=== PATIENT | male | born 1940 | race Caucasian/White ===

== ENCOUNTER → 2017-01-13 | Outpatient (CLI) | payer MEDICARE, OTHER ==
--- NOTE | 2017-01-13 12:02 | RADRPT ---
PROCEDURE: Ultrasound of the bilateral lower extremity venous system. CLINICAL INDICATION: Bilateral leg pain and swelling, deep venous thrombosis TECHNIQUE: Islas scale with and without compression, color doppler, spectral doppler of the venous system of the bilateral lower extremities was performed. Venous augmentation maneuvers were utilized . COMPARISON: No prior studies are available for comparison. FINDINGS: RIGHT: Common femoral vein: Patent. Superficial femoral vein: Patent. Popliteal vein: Patent. Calf veins: Patent. No soft tissue abnormalities are identified. LEFT: Common femoral vein: Patent. Superficial femoral vein: Patent. Popliteal vein: Patent. Calf veins: Patent. No soft tissue abnormalities are identified. IMPRESSION: No evidence of a deep vein thrombosis within the bilateral lower extremities. RPTAT: AADD .Ariel Panchal MD, MD Date Time Electronically viewed and signed by .Ariel Panchal MD, on 01/13/2017 12:02 .B/
== END | disposition home or self-care (01) ==
LOC: VAS 10:51
PROVIDERS: ATTEND Internal Medicine
DX: M79.605 Pain in left leg (principal); M79.604 Pain in right leg; R22.43 Localized swelling, mass and lump, lower limb, bilateral
CPT/HCPCS: 93970

== ENCOUNTER 2017-04-30 16:37 | Inpatient (IN) | payer MEDICARE, OTHER ==
[~2017-04-30] VITALS: Ht 172.7 cm; Wt 88.7 kg
[2017-04-30] MEDS ORDERED: SOD CHLORIDE 0.9% 1,000 ML IV STA (18:32)
[2017-04-30 18:54] LABS: ADD SCAN DIFF NO
[2017-04-30 18:58] LABS: BASOPHIL # 0.1 10^3/ul (0.0-0.1); BASOPHILS % 0.8 % (0.0-2.0); EOSINOPHILS # 0.3 10^3/ul (0.0-0.5); EOSINOPHILS % 5.5 % (0.0-7.0); HEMATOCRIT 27.4 % (42.0-52.0); HEMOGLOBIN 9.8 g/dl (14.0-18.0); LYMPHOCYTES # 1.1 10^3/ul (0.8-2.9); LYMPHOCYTES % 17.1 % (15.0-51.0); MEAN CORPUSCULAR HEMOGLOBIN 30.9 pg (29.0-33.0); MEAN CORPUSCULAR HGB CONC 35.8 g/dl (32.0-37.0); MEAN CORPUSCULAR VOLUME 86.4 fl (82.0-101.0); MEAN PLATELET VOLUME 11.2 fl (7.4-10.4); MONOCYTE # 0.5 10^3/ul (0.3-0.9); MONOCYTES % 8.2 % (0.0-11.0); NEUTROPHIL # 4.2 10^3/ul (1.6-7.5); NEUTROPHILS % 67.7 % (39.0-77.0); PLATELET COUNT 190 10^3/UL (140-415); RED BLOOD COUNT 3.17 10^6/ul (4.70-6.10); RED CELL DISTRIBUTION WIDTH 11.8 % (11.5-14.5); WHITE BLOOD COUNT 6.1 10^3/ul (4.8-10.8)
--- NOTE | 2017-04-30 19:15 | RADRPT ---
PROCEDURE: XR Chest. CLINICAL INDICATION: Altered mental status. TECHNIQUE: Single AP portable chest COMPARISON: None. FINDINGS: The cardiomediastinal silhouette is within normal limits of size. Atherosclerotic calcification of t he aorta. The lungs are clear without pleural effusion or focal consolidation. No pneumothorax. The osseous structures and soft tissues are unremarkable. IMPRESSION: 1. No evidence for active cardiopulmonary disease. RPTAT:AAJJ Lai Ryder Physician Date Time Electronically viewed and signed by Lai Ryder Physician on 04/30/2017 19:15 LAURA/
[2017-04-30 19:32] LABS: ADD UMIC YES; URINE BILIRUBIN (Dip) NEGATIVE (NEGATIVE); URINE BLOOD (Dip) TRACE (NEGATIVE); URINE COLOR LT. YELLOW (YELLOW); URINE GLUCOSE (Dip) >=1000 % (NEGATIVE); URINE KETONES (Dip) NEGATIVE (NEGATIVE); URINE LEUKOCYTE ESTERASE (Dip) NEGATIVE (NEGATIVE); URINE NITRITE (Dip) NEGATIVE (NEGATIVE); URINE TOTAL PROTEIN (Dip) 1+ (NEGATIVE); URINE UROBILINOGEN (Dip) 0.2 E.U./dL (0.1-1.0)
--- NOTE | 2017-04-30 19:33 | RADRPT ---
PROCEDURE: CT Brain without contrast. CLINICAL INDICATION: Neurologic deficit TECHNIQUE: A CT of the brain was performed on multidetector high-resolution CT scanner utilizing a xial sections from the skull base through the vertex without contrast. One or more of the following dose reduction techniques were used: Automated exposure control, Adjustment of the mA and/or kV acc ording to patient size, and/or use of iterative reconstruction technique. DOSE: CTDI = 45 mGy and the DLP = 720 mGy-cm. COMPARISON: None available FINDINGS: No acute intracranial hemorrhage, significant mass effect or midline shift. Patchy hypoattenuation o f the cerebral white matter is compatible with chronic microvascular ischemic changes. Vascular calc ifications. Prominence of the cortical sulci and ventricles are related to mild to moderate cerebral volume loss. No significant opacification of the visualized paranasal sinuses or mastoids. IMPRESSION: No acute intracranial hemorrhage or significant mass effect. Mild chronic microvascular disease and intracranial atherosclerosis. Mild to moderate volume loss. RPTAT: AA .Aramis Nice MD, MD Date Time Electronically viewed and signed by .Aramis Nice MD, MD on 04/30/2017 19:32 .T/
[2017-04-30 19:47] LABS: URINE RBCS 0-2 /HPF (0)
[2017-04-30 19:55] LABS: ALBUMIN 4.5 g/dl (3.3-4.9); ALBUMIN/GLOBULIN RATIO 1.87; BILIRUBIN,INDIRECT 0.1 mg/dl (0-1.1); BILIRUBIN,TOTAL 0.1 mg/dl (0.2-1.3); CREATININE 2.81 mg/dl (0.61-1.24); POTASSIUM 4.7 mmol/L (3.5-5.1); TOTAL PROTEIN 6.9 g/dl (6.1-8.1)
[2017-04-30] MEDS ORDERED: INSULIN REGULAR 10 ML INJ SC ONE (20:00)
[2017-04-30 20:07] LABS: TROPONIN-I 0.021 ng/ml (0.00-0.12)
[2017-04-30 20:10] LABS: INR 1.01; PROTIME 13.3 Sec (12.2-14.2)
[2017-04-30 20:11] LABS: PARTIAL THROMBOPLASTIN TIME 28.1 Sec (25.0-35.0)
--- NOTE | 2017-04-30 20:21 | PREOPHP ---
DATE OF ADMISSION: 04/30/2017 REASON FOR ADMISSION: Hyperglycemia and uncontrolled diabetes mellitus. HISTORY OF PRESENT ILLNESS: This 76-year-old man has a history of type 2 diabetes mellitus. The patient was seen by me yesterday in my office and had a blood sugar done by the lab that 737. I spoke to the patient this morning, and I told him that his blood sugar was quite high. The patient at the time that I was speaking to him, seemed confused. He said that he had just gotten up from taking a nap. He says that he has been taking Humalog insulin 6 to 8 units before each meal; however, this is not consistent with his previous conversation with me when he told me that he took 3 units of Humalog insulin at night and that he woke up with some hypoglycemia. The patient was seen by me a month ago and his blood sugar at that time was 138. This patient has a history of chronic kidney disease and his BUN yesterday was 58 with a serum creatinine of 3.0. The patient has diabetic nephropathy. He has had significant lower extremity edema, which has been recently controlled with Lasix and metolazone. The patient has lost about 20 pounds of edema fluid over the past 2 months. The patient presents to the emergency room now. He is less confused and his blood sugar is now 565 on a fingerstick Accu-Chek. CURRENT MEDICATIONS: Includes the followin. Metolazone 2.5 mg once a day. 2. Flonase 2 sprays in each nostril once a day. Astelin 2 sprays each nostril twice a day. 3. Avodart 1 capsule twice a day. 4. Multivitamins 1 capsule daily. 5. Vitamin D3 5000 units once a week. 6. Ria 24-hour Allergy once a day. 7. Humalog insulin. 8. Flomax 0.4 mg twice a day. 9. Doxazosin 4 mg orally once a day. 10. Carvedilol 6.25 mg twice a day. 11. Furosemide 40 mg once a day after breakfast. 12. Metolazone 2.5 mg once a day before breakfast. 13. Crestor 10 mg a day. PAST MEDICAL HISTORY: Remarkable for type 2 diabetes mellitus, hyperlipidemia, hypertension, prostatism, allergic rhinitis, gastroesophageal reflux disease, chronic kidney disease, stage III to IV, diabetic nephropathy with nephrotic syndrome. ALLERGIES: 1. KEFLEX. 2. CECLOR. 3. AXID 4. NITROFURANTOIN. PAST SURGICAL HISTORY: Tonsillectomy in 1970, vasectomy 1972, hemorrhoidectomy 1975, colonoscopy and EGD 2015. FAMILY HISTORY: Father of coronary artery disease. Mother is , coronary artery disease. SOCIAL HISTORY: The patient does not smoke, drinks alcohol socially. 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 REVIEW OF SYSTEMS: CONSTITUTIONAL: No chills, no weight loss, no loss of appetite, no fever, no weakness, no fatigue. OPHTHALMOLOGIC: Negative. EARS, NOSE AND THROAT: Negative. CARDIORESPIRATORY: He denies any exertional chest pain, chest pressure, cough, ankle swelling. GASTROINTESTINAL: Negative. UROLOGIC: He does have some urinary dysfunction, but it seems pretty well controlled with his current medications. He does have a history of prostatism. PHYSICAL EXAMINATION: GENERAL: At this time reveals a well-developed man in no apparent distress. VITAL SIGNS: His weight is 193, which is down from 212 two months ago. Blood pressure 133/68, heart rate 71. HEENT: Head normocephalic. Eyes: Extraocular muscles intact. NOSE AND MOUTH: Normal. NECK: Supple. No neck vein distention. LUNGS: Clear to auscultation. HEART: Regular rhythm. No murmurs, gallops or rubs. ABDOMEN: Soft, nontender, no masses or megaly. EXTREMITIES: He has trace pretibial edema. IMPRESSION: 1. Uncontrolled diabetes mellitus with hyperglycemia. 2. Intermittent confusion. 3. Acute on chronic renal failure. History of diabetic nephropathy. 4. Hypertension. 5. Anemia of chronic kidney disease. 6. Benign prostatic hypertrophy. 7. Hyponatremia due to # 1 PLAN: 1. Admit patient to telemetry when bed available. 2. Endocrinology called , Dr Cooley will consult and order insulin 3. Resume some routine medications. 4. Monitor labs while in the hospital. 5. Diabetes education. Dictated By: POLO PRESTON MD, ND/EPHRAIM Conf#: [id number] DID#: [id number] MTDD
[2017-04-30] MEDS ORDERED: FURO40TA4 PO (20:24)
[2017-04-30] MEDS ORDERED: METO2.5T12 PO (20:25)
[2017-04-30] MEDS ORDERED: DOXA4TAB3 PO (20:26)
[2017-04-30] MEDS ORDERED: TAMS0.4C2 PO (20:27)
[2017-04-30] MEDS ORDERED: CARV6.2579 PO (20:27)
[2017-04-30] MEDS ORDERED: CRES10 PO (20:28)
[2017-04-30] MEDS ORDERED: DUTA0.5C PO (20:29)
[2017-04-30 20:55] VITALS: TEMP 98.3
[2017-04-30] MEDS ORDERED: INSULIN REGULAR, HUMAN 100 UNIT/1 ML 3ML VIAL SC ONE (21:00)
[2017-04-30] MEDS ORDERED: NACL 0.9% 3 ML SYG IV SCH (21:30)
[2017-04-30] MEDS ORDERED: ACETAMINOPHEN 325 MG TAB PO PRN ×2 (21:30→22:00)
[2017-04-30] MEDS ORDERED: MAGNESIUM HYDROXIDE 30ML CUP PO PRN (21:30)
[2017-04-30] MEDS ORDERED: SOD CHLORIDE 0.9% 1,000 ML IV SCH (21:53)
--- NOTE | 2017-04-30 21:57 | ERA ---
ER Documentation Chief Complaint Date/Time DATE: 04/30/17 TIME: 21:54 Chief Complaint ELEVATED SUGAR SENT PRIMARY, CHECKED BLOOD GLUCOSE 565 HPI Pleasant 76-year-old male with a history of diabetes who is seen by his primary care physician yesterday and had blood work drawn. The patient's blood work came back with a very elevated glucose of over 500. The patient was called and told to come to the emergency room because when he spoke with his doctor patient seemed to be confused. On arrival here the patient is very versed in what he is taking for his insulin however he does have episodes where he seems to be tangential and loses his train of thought and repeats sentences over and over again. He has times where he is completely appropriate at times or he is definitely confused. He has no physical complaints denies any dysuria fever cough abdominal pain or vomiting. He is nontoxic and well-appearing. ROS All systems reviewed and are negative except as per history of present illness. Medications Home Meds Reported Medications Dutasteride* (Avodart*) 0.5 Mg Capsule, 0.5 MG PO Q2WEEK, CAP 04/30/17 Rosuvastatin Calcium* (Crestor*) 10 Mg Tablet, 10 MG PO DAILY, #30 TAB 04/30/17 Carvedilol* (Carvedilol*) 6.25 Mg Tablet, 6.25 MG PO BID, #60 TAB 04/30/17 Tamsulosin Hcl* (Tamsulosin Hcl*) 0.4 Mg Cap.er.24h, 0.4 MG PO BID, CAP 04/30/17 Doxazosin Mesylate* (Doxazosin Mesylate*) 4 Mg Tablet, 4 MG PO DAILY, TAB 04/30/17 Metolazone* (Metolazone*) 2.5 Mg Tablet, 2.5 MG PO DAILY, TAB 04/30/17 Furosemide* (Furosemide*) 40 Mg Tablet, 40 MG PO DAILY, TAB 04/30/17 Allergies Allergies: Coded Allergies: Cephalosporins (Verified Allergy, Mild, hives, 04/30/17) nitrofurantoin (Verified Allergy, Unknown, hives, 04/30/17) nizatidine (Verified Allergy, Unknown, hives, 04/30/17) PMhx/Soc Hx Miscellaneous Medical Probl: Yes (DM) Hx Alcohol Use: No Hx Substance Use: No Hx Tobacco Use: No Smoking Status: Never smoker FmHx Family History: No coronary disease Physical Exam Vitals Vital Signs Date Time Temp Pulse Resp B/P Pulse Ox O2 Delivery O2 Flow Rate FiO2 04/30/17 20:55 98.3 59 16 153/79 99 Room Air 04/30/17 19:05 98.3 60 16 146/56 96 04/30/17 17:00 97.7 72 17 107/54 96 Physical Exam Const: Well-developed, well-nourished Head: Atraumatic, normocephalic Eyes: Normal Conjunctiva, PERRLA, EOMI, normal sclera, no nystagmus ENT: Normal External Ears, Nose and Mouth, moist mucus membranes. Neck: Full range of motion. No meningismus, no lymphadenopathy. Resp: Clear to auscultation bilaterally, no wheezing, rhonchi, rales Cardio: Regular rate and rhythm, no murmurs, S1 S2 present Abd: Soft, non tender x 4, non distended. Normal bowel sounds, no guarding or rebound, no pulsitile abdominal masses or bruits Skin: No petechiae or rashes, no ecchymosis , no maculopapular rash Back: No midline or flank tenderness Ext: No cyanosis, or edema, FROM x 4, normal inspection, neurovascularly intact x 4 Neur: Awake and alert, STR 5/5 x 4, sensation intact x 4, no focal findings, cerebellum intact Psych: Normal Mood and Affect, has periods of tangential thought with repeated answers he is oriented 3 Result Diagram: 04/30/17183904/30/17 184 Results 24 hrs Laboratory Tests Test 04/30/17 16:59 04/30/17 18:40 04/30/17 19:20 04/30/17 21:09 Bedside Glucose 565mg/dL 434mg/dL White Blood Count 6.110^3/ul Red Blood Count 3.1710^6/ul Hemoglobin 9.8g/dl Hematocrit 27.4% Mean Corpuscular Volume 86.4fl Mean Corpuscular Hemoglobin 30.9pg Mean Corpuscular Hemoglobin Concent 35.8g/dl Red Cell Distribution Width 11.8% Platelet Count 06947^3/UL Mean Platelet Volume 11.2fl Neutrophils % 67.7% Lymphocytes % 17.1% Monocytes % 8.2% Eosinophils % 5.5% Basophils % 0.8% Nucleated Red Blood Cells % 0.0/100WBC Neutrophils # 4.210^3/ul Lymphocytes # 1.110^3/ul Monocytes # 0.510^3/ul Eosinophils # 0.310^3/ul Basophils # 0.110^3/ul Nucleated Red Blood Cells # 0.010^3/ul Prothrombin Time 13.3Sec Prothrombin Time Ratio 1.0 INR International Normalized Ratio 1.01 Activated Partial Thromboplast Time 28.1Sec Sodium Level 122mmol/L Potassium Level 4.7mmol/L Chloride Level 89mmol/L Carbon Dioxide Level 24mmol/L Anion Gap 14 Blood Urea Nitrogen 66mg/dl Creatinine 2.81mg/dl Glucose Level 514mg/dl Calcium Level 9.0mg/dl Total Bilirubin 0.1mg/dl Direct Bilirubin 0.00mg/dl Indirect Bilirubin 0.1mg/dl Aspartate Amino Transf (AST/SGOT) 30IU/L Alanine Aminotransferase (ALT/SGPT) 49IU/L Alkaline Phosphatase 101IU/L Troponin I 0.021ng/ml Total Protein 6.9g/dl Albumin 4.5g/dl Globulin 2.40g/dl Albumin/Globulin Ratio 1.87 Urine Color LT. YELLOW Urine Clarity CLEAR Urine pH 5.5 Urine Specific [place] 1.010 Urine Ketones NEGATIVE Urine Nitrite NEGATIVE Urine Bilirubin NEGATIVE Urine Urobilinogen 0.2 E.U./dL Urine Leukocyte Esterase NEGATIVE Urine Microscopic RBC 0-2/HPF Urine Microscopic WBC 0-2/HPF Urine Hemoglobin TRACE Urine Glucose >=1000% Urine Total Protein 1+ Test 04/30/17 21:34 Bedside Glucose 326mg/dL Current Medications Medications (Trade) Dose Ordered Sig/Victoriano Route PRN Reason Start Time Stop Time Status Last Admin Dose Admin Sodium Chloride (NS) 1,000 ml @ 1,000 mls/hr Q1H STAT IV 04/30/17 18:32 04/30/17 19:31 DC 04/30/17 19:17 Insulin Human Regular (Novolin-R) 12 unit ONCE ONCE SC 04/30/17 20:00 04/30/17 20:50 DC Insulin Human Regular 12 unit 12 unit ONCE ONCE SC 04/30/17 21:00 04/30/17 21:01 DC 04/30/17 21:06 Sodium Chloride (NS) 1,000 ml @ 125 mls/hr Q8H IV 04/30/17 21:28 IV Flush (NS 3 ml) 3 ml PER PROTOCOL IV 04/30/17 21:30 Acetaminophen (Tylenol Tab) 650 mg Q6H PRN PO PAIN LEVEL 1-3 OR FEVER 04/30/17 21:30 Magnesium Hydroxide (Milk Of Mag) 30 ml DAILY PRN PO CONSTIPATION 04/30/17 21:30 Carvedilol (Coreg) 6.25 mg BID PO 05/01/17 09:00 Doxazosin Mesylate (Cardura) 4 mg DAILY PO 05/01/17 09:00 Tamsulosin HCl (Flomax) 0.4 mg BID PO 05/01/17 09:00 Miscellaneous Information 10 mg DAILY PO 05/01/17 09:00 05/01/17 09:00 DC Atorvastatin Calcium (Lipitor) 40 mg DAILY@21 PO 05/01/17 21:00 Procedures/MDM PROCEDURE: CT Brain without contrast. CLINICAL INDICATION: Neurologic deficit TECHNIQUE: A CT of the brain was performed on multidetector high-resolution CT scanner utilizing axial sections from the skull base through the vertex without contrast. One or more of the following dose reduction techniques were used: Automated exposure control, Adjustment of the mA and/or kV according to patient size, and/or use of iterative reconstruction technique. DOSE: CTDI = 45 mGy and the DLP = 720 mGy-cm. COMPARISON: None available FINDINGS: No acute intracranial hemorrhage, significant mass effect or midline shift. Patchy hypoattenuation of the cerebral white matter is compatible with chronic microvascular ischemic changes. Vascular calcifications. Prominence of the cortical sulci and ventricles are related to mild to moderate cerebral volume loss. No significant opacification of the visualized paranasal sinuses or mastoids. IMPRESSION: No acute intracranial hemorrhage or significant mass effect. Mild chronic microvascular disease and intracranial atherosclerosis. Mild to moderate volume loss. RPTAT: AA .Aramis Nice MD, Date Time Electronically viewed and signed by .Aramis Nice MD, on 04/30/2017 19:32 .T/ CC: FRANCISCO YUEN DO PROCEDURE: XR Chest. CLINICAL INDICATION: Altered mental status. TECHNIQUE: Single AP portable chest COMPARISON: None. FINDINGS: The cardiomediastinal silhouette is within normal limits of size. Atherosclerotic calcification of the aorta. The lungs are clear without pleural effusion or focal consolidation. No pneumothorax. The osseous structures and soft tissues are unremarkable. IMPRESSION: 1. No evidence for active cardiopulmonary disease. RPTAT:AAJJ Lai Ryder Physician Date Time Electronically viewed and signed by Lai Ryder Physician on 04/30/2017 19:15 LAURA/ CC: FRANCISCO YUEN DO Patient is given some IV fluids and insulin subcu sugars down in the 300s now. I spoke with his primary care physician he will be admitted to the hospital for sugar control. Hopefully when his blood sugar decreases he is mental status will improve. If not he will require some more imaging, brain MRI Departure Diagnosis: Primary Impression: Hyperglycemia Additional Impression: Confusion Condition: Stable FRANCISCO YUEN DO Apr 30, 2017 21:57
[2017-04-30] MEDS ORDERED: ONDANSETRON 4 MG INJ IV PRN (22:00)
[2017-05-01] VITALS (13 sets, daily range): BP systolic 121–178; BP diastolic 58–79; PULSE 57–77; RESP 17–20; Ht 172.7 cm; Wt 88.7 kg
[2017-05-01] MEDS: SOD CHLORIDE 0.9% 1,000 ML IV SCH ×2 (01:30→05:52)
[2017-05-01] MEDS ORDERED: INSULIN ASPART [NOVOLOG] 3 ML PEN SC ONE ×2 (02:30→07:00)
[2017-05-01] MEDS ORDERED: GLUCOSE GEL 15 GRAM TUBE PO PRN ×2 (03:00)
[2017-05-01] MEDS ORDERED: GLUCAGON 1 MG INJ IM PRN (03:00)
[2017-05-01] MEDS ORDERED: DEXTROSE 50% 50 ML SYRINGE IV PRN ×2 (03:00)
[2017-05-01] MEDS ORDERED: GLUCOSE GEL 15 GRAM TUBE BUCCAL PRN (03:00)
[2017-05-01 07:33] LABS: ADD SCAN DIFF NO
[2017-05-01 07:37] LABS: BASOPHILS % 0.3 % (0.0-2.0); EOSINOPHILS # 0.4 10^3/ul (0.0-0.5); EOSINOPHILS % 5.5 % (0.0-7.0); HEMATOCRIT 25.9 % (42.0-52.0); LYMPHOCYTES # 1.2 10^3/ul (0.8-2.9); LYMPHOCYTES % 19.5 % (15.0-51.0); MEAN CORPUSCULAR HEMOGLOBIN 30.2 pg (29.0-33.0); MEAN CORPUSCULAR HGB CONC 34.7 g/dl (32.0-37.0); MEAN CORPUSCULAR VOLUME 86.9 fl (82.0-101.0); MEAN PLATELET VOLUME 11.3 fl (7.4-10.4); MONOCYTE # 0.5 10^3/ul (0.3-0.9); MONOCYTES % 7.5 % (0.0-11.0); NEUTROPHIL # 4.2 10^3/ul (1.6-7.5); NEUTROPHILS % 66.6 % (39.0-77.0); PLATELET COUNT 173 10^3/UL (140-415); RED BLOOD COUNT 2.98 10^6/ul (4.70-6.10); WHITE BLOOD COUNT 6.4 10^3/ul (4.8-10.8)
[2017-05-01 08:01] LABS: ALBUMIN 3.6 g/dl (3.3-4.9); ALBUMIN/GLOBULIN RATIO 1.56; BILIRUBIN,INDIRECT 0.2 mg/dl (0-1.1); BILIRUBIN,TOTAL 0.2 mg/dl (0.2-1.3); CALCIUM 8.6 mg/dl (8.4-10.2); CREATININE 2.45 mg/dl (0.61-1.24); MAGNESIUM 2.4 mg/dl (1.7-2.5); POTASSIUM 3.9 mmol/L (3.5-5.1); TOTAL PROTEIN 5.9 g/dl (6.1-8.1)
[2017-05-01] MEDS: INSULIN ASPART [NOVOLOG] 3 ML PEN SC SCH ×5 (08:24→22:33)
[2017-05-01 08:51] LABS: IRON 66 ug/dl (35-150)
[2017-05-01 09:00] LABS: TOTAL IRON BINDING CAPACITY 243 ug/dl (241-421)
[2017-05-01] MEDS ORDERED: NON-FORMULARY/PATIENT OWN MED (Rosuvastatin Calcium* (Crestor*) 10 MG) PO SCH (09:00)
[2017-05-01] MEDS: DOXAZOSIN 4 MG TAB PO SCH (09:46)
[2017-05-01] MEDS: TAMSULOSIN (SR) 0.4 MG CAP PO SCH ×2 (09:46→20:32)
--- NOTE | 2017-05-01 15:17 | PN ---
Date/Time of Note Date/Time of Note DATE: 05/01/17 TIME: 15:14 Assessment/Plan VTE Prophylaxis VTE Prophylaxis Intervention: ambulation Lines/Catheters IV Catheter Type (from Nrsg): Saline Lock Assessment/Plan Assessment/Plan * poorly controlled DM: pt states was not taking his meds. now on levemir/ iss and tardjenta. endo eval in progress * arf on ckd: much better with ivf. cont hydration and reduce rate * hyponatremia: due to severe hyperglycemia and volume depletion. much better * htn: on meds * anemia: check iron sats and start epogen Subjective 24 Hr Interval Summary Free Text/Dictation feels much better. has no complaints Exam/Review of Systems Vital Signs Vitals Vital Signs Date Time Temp Pulse Resp B/P Pulse Ox O2 Delivery O2 Flow Rate FiO2 05/01/17 12:01 57 05/01/17 11:33 98.2 19 121/58 96 04/30/17 23:00 Room Air Intake and Output 04/30/17 04/30/17 05/01/17 15:00 23:00 07:00 Output Total 1000 ml Balance -1000 ml Exam Constitutional: alert, oriented Psych: no complaints Head: atraumatic, normocephalic Eyes: nl conjunctiva ENMT: nl external ears & nose Neck: jvd, non-tender, supple Respiratory: clear to auscultation Cardiovascular: regular rate and rhythm, No edema, No nl pulses Gastrointestinal: No non-tender, No soft Results Result Diagram: 05/01/17 0635 05/01/17 0500 Results 24 hrs Laboratory Tests Test 04/30/17 16:59 04/30/17 18:40 04/30/17 19:20 04/30/17 21:09 Bedside Glucose 565 *H 434 *H White Blood Count 6.1 Red Blood Count 3.17 L Hemoglobin 9.8 L Hematocrit 27.4 L Mean Corpuscular Volume 86.4 Mean Corpuscular Hemoglobin 30.9 Mean Corpuscular Hemoglobin Concent 35.8 Red Cell Distribution Width 11.8 Platelet Count 190 Mean Platelet Volume 11.2 H Neutrophils % 67.7 Lymphocytes % 17.1 Monocytes % 8.2 Eosinophils % 5.5 Basophils % 0.8 Nucleated Red Blood Cells % 0.0 Neutrophils # 4.2 Lymphocytes # 1.1 Monocytes # 0.5 Eosinophils # 0.3 Basophils # 0.1 Nucleated Red Blood Cells # 0.0 Prothrombin Time 13.3 Prothrombin Time Ratio 1.0 INR International Normalized Ratio 1.01 Activated Partial Thromboplast Time 28.1 Sodium Level 122 L Potassium Level 4.7 Chloride Level 89 L Carbon Dioxide Level 24 Anion Gap 14 Blood Urea Nitrogen 66 H Creatinine 2.81 H Glucose Level 514 *H Calcium Level 9.0 Total Bilirubin 0.1 L Direct Bilirubin 0.00 Indirect Bilirubin 0.1 Aspartate Amino Transf (AST/SGOT) 30 Alanine Aminotransferase (ALT/SGPT) 49 Alkaline Phosphatase 101 Troponin I 0.021 Total Protein 6.9 Albumin 4.5 Globulin 2.40 Albumin/Globulin Ratio 1.87 Urine Color LT. YELLOW Urine Clarity CLEAR Urine pH 5.5 Urine Specific [place] 1.010 Urine Ketones NEGATIVE Urine Nitrite NEGATIVE Urine Bilirubin NEGATIVE Urine Urobilinogen 0.2 E.U./dL Urine Leukocyte Esterase NEGATIVE Urine Microscopic RBC 0-2 Urine Microscopic WBC 0-2 Urine Hemoglobin TRACE Urine Glucose >=1000 Urine Total Protein 1+ H Test 04/30/17 21:34 04/30/17 21:57 05/01/17 01:50 05/01/17 04:16 Bedside Glucose 326 H 267 H 315 H 335 H Test 05/01/17 05:00 05/01/17 06:05 05/01/17 06:22 05/01/17 06:35 Sodium Level 133 L Potassium Level 3.9 Chloride Level 100 # Carbon Dioxide Level 25 Anion Gap 12 Blood Urea Nitrogen 56 H Creatinine 2.45 H Glucose Level 313 #H Calcium Level 8.6 Magnesium Level 2.4 Ferritin 170.0 Total Bilirubin 0.2 Direct Bilirubin 0.00 Indirect Bilirubin 0.2 Aspartate Amino Transf (AST/SGOT) 21 Alanine Aminotransferase (ALT/SGPT) 45 Alkaline Phosphatase 71 Total Protein 5.9 #L Albumin 3.6 Globulin 2.30 Albumin/Globulin Ratio 1.56 Phosphorus Level 3.8 Iron Level 66 Total Iron Binding Capacity 243 Percent Iron Saturation 27 Bedside Glucose 380 H White Blood Count 6.4 Red Blood Count 2.98 L Hemoglobin 9.0 L Hematocrit 25.9 L Mean Corpuscular Volume 86.9 Mean Corpuscular Hemoglobin 30.2 Mean Corpuscular Hemoglobin Concent 34.7 Red Cell Distribution Width 12.0 Platelet Count 173 Mean Platelet Volume 11.3 H Neutrophils % 66.6 Lymphocytes % 19.5 Monocytes % 7.5 Eosinophils % 5.5 Basophils % 0.3 Nucleated Red Blood Cells % 0.0 Neutrophils # 4.2 Lymphocytes # 1.2 Monocytes # 0.5 Eosinophils # 0.4 Basophils # 0.0 Nucleated Red Blood Cells # 0.0 Test 05/01/17 08:10 05/01/17 09:37 05/01/17 11:52 Bedside Glucose 325 H 215 104 Medications Medications Current Medications Sodium Chloride (NS) 1,000 ml @ 125 mls/hr Q8H IV Last administered on 05:52; Admin Dose 125 MLS/HR; Start 04/30/17 at 21:28 Acetaminophen (Tylenol Tab) 650 mg Q6H PRN PO PAIN LEVEL 1-3 OR FEVER; Start at 21:30 Magnesium Hydroxide (Milk Of Mag) 30 ml DAILY PRN PO CONSTIPATION; Start at 21:30 Carvedilol (Coreg) 6.25 mg BID PO Last administered on 05/01/17 09:47; Admin Dose 6.25 MG; Start 05/01/17 at 09:00 Doxazosin Mesylate (Cardura) 4 mg DAILY PO Last administered on 05/01/17 09:46 ; Admin Dose 4 MG; Start 05/01/17 at 09:00 Tamsulosin HCl (Flomax) 0.4 mg BID PO Last administered on 05/01/17 09:46; Admin Dose 0.4 MG; Start 05/01/17 at 09:00 Atorvastatin Calcium (Lipitor) 40 mg DAILY@21 PO ; Start 05/01/17 at 21:00 Diagnostic Test (Pha) (Accu-Chek) 1 ea 02 XX ; Start 05/02/17 at 02:00 Miscellaneous Information 1 ea NOTE XX ; Start 05/01/17 at 03:00 Glucose (Glutose) 15 gm Q15M PRN PO DECREASED GLUCOSE; Start 05/01/17 at 03:00 Glucose (Glutose) 22.5 gm Q15M PRN PO DECREASED GLUCOSE; Start 05/01/17 at 03:00 Dextrose (D50w Syringe) 25 ml Q15M PRN IV DECREASED GLUCOSE; Start 05/01/17 at 03:00 Dextrose (D50w Syringe) 50 ml Q15M PRN IV DECREASED GLUCOSE; Start 05/01/17 at 03:00 Glucagon (Glucagen) 1 mg Q15M PRN IM DECREASED GLUCOSE; Start 05/01/17 at 03:00 Glucose (Glutose) 15 gm Q15M PRN BUCCAL DECREASED GLUCOSE; Start 05/01/17 at 03: 00 Insulin Detemir (Levemir) 20 unit DAILY SC ; Start 05/01/17 at 11:30 Linagliptin (Tradjenta) 5 mg DAILY PO ; Start 05/01/17 at 11:00 ELY LINDA MD May 01, 2017 15:17
[2017-05-01] MEDS: LINAGLIPTIN 5 MG TABLET PO SCH (16:12)
[2017-05-01] MEDS: INSULIN DETEMIR [LEVEMIR] 3ML CART SC SCH (16:12)
[2017-05-01] MEDS ORDERED: EPOETIN ALFA (NESRD) 3,000 UNITS/ML VIAL SC SCH (17:00)
--- NOTE | 2017-05-01 19:48 | CONS ---
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 Will add a basal insulin together with a DDP4 agent. Will determine his prandial insulin dosing based on his overall requirements. May also add a GLP1 inhibitor if glucose control is not achieved solely with the new medication additions. Qualifiers: (2) Hyperglycemia Status: Acute Comment: Improved with correction insulin, but requires longer acting basal insulin to maintain glycemic control and scheduled prandial insulin with meals. (3) Confusion Status: Resolved Consultation Date/Type/Reason Admit Date/Time May 01, 2017 at 12:20 Date of Consultation: May 01, 2017 Type of Consultation: Endocrine Reason for Consultation Hyperglycemia Thank you Dr. Preston for asking me to participate in this patient's care. Referring Provider: POLO PRESTON MD Hx of Present Illness 73 year old man with history of diabetes mellitus for the past 25 years. On short acting insulin therapy only for the past 3 years. Never placed on long acting insulin due to his fear of hypoglycemia because of his erratic eating habits. Evidence of diabetic related chronic kidney disease.Awoke yesterday morning feeling"parched" with excessive amounts of thirst. Dr. Preston (his PMD) recommended he come to the [facility] at [facility] for admission because his blood sugars were in the 700 range. I have been asked to assist in restructuring this patients medications to improve glycemic control. . 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 Exam/Review of Systems Vital Signs Vitals Vital Signs Date Time Temp Pulse Resp B/P Pulse Ox O2 Delivery O2 Flow Rate FiO2 05/01/17 16:31 69 05/01/17 16:04 98.3 18 130/62 94 04/30/17 23:00 Room Air Intake and Output 04/30/17 04/30/17 05/01/17 15:00 23:00 07:00 Output Total 1000 ml Balance -1000 ml Exam Constitutional: alert, oriented, well developed Head: normocephalic Eyes: EOMI, PERRL, fundi, disc (undilated and not seen), nl conjunctiva Neck: supple Respiratory: clear to auscultation Cardiovascular: regular rate and rhythm Gastrointestinal: soft Musculoskeletal: nl extremities to inspection Extremities: normal pulses Neurological: other (grossly intact) Results Labs and POC glucose reviewed Result Diagram: 05/01/17 0635 05/01/17 0500 Results 24 hrs Laboratory Tests Test 04/30/17 21:09 04/30/17 21:34 04/30/17 21:57 05/01/17 01:50 Bedside Glucose 434 *H 326 H 267 H 315 H Test 05/01/17 04:16 05/01/17 05:00 05/01/17 06:05 05/01/17 06:22 Bedside Glucose 335 H 380 H Sodium Level 133 L Potassium Level 3.9 Chloride Level 100 # Carbon Dioxide Level 25 Anion Gap 12 Blood Urea Nitrogen 56 H Creatinine 2.45 H Glucose Level 313 #H Calcium Level 8.6 Magnesium Level 2.4 Ferritin 170.0 Total Bilirubin 0.2 Direct Bilirubin 0.00 Indirect Bilirubin 0.2 Aspartate Amino Transf (AST/SGOT) 21 Alanine Aminotransferase (ALT/SGPT) 45 Alkaline Phosphatase 71 Total Protein 5.9 #L Albumin 3.6 Globulin 2.30 Albumin/Globulin Ratio 1.56 Phosphorus Level 3.8 Iron Level 66 Total Iron Binding Capacity 243 Percent Iron Saturation 27 Test 05/01/17 06:35 05/01/17 08:10 05/01/17 09:37 05/01/17 11:52 White Blood Count 6.4 Red Blood Count 2.98 L Hemoglobin 9.0 L Hematocrit 25.9 L Mean Corpuscular Volume 86.9 Mean Corpuscular Hemoglobin 30.2 Mean Corpuscular Hemoglobin Concent 34.7 Red Cell Distribution Width 12.0 Platelet Count 173 Mean Platelet Volume 11.3 H Neutrophils % 66.6 Lymphocytes % 19.5 Monocytes % 7.5 Eosinophils % 5.5 Basophils % 0.3 Nucleated Red Blood Cells % 0.0 Neutrophils # 4.2 Lymphocytes # 1.2 Monocytes # 0.5 Eosinophils # 0.4 Basophils # 0.0 Nucleated Red Blood Cells # 0.0 Bedside Glucose 325 H 215 104 Test 05/01/17 16:05 05/01/17 17:58 Bedside Glucose 426 *H 473 *H Medications Medications Current Medications Sodium Chloride (NS) 1,000 ml @ 75 mls/hr [id number] IV Last administered on 05:52; Admin Dose 125 MLS/HR; Start 04/30/17 at 21:28 Acetaminophen (Tylenol Tab) 650 mg Q6H PRN PO PAIN LEVEL 1-3 OR FEVER; Start at 21:30 Magnesium Hydroxide (Milk Of Mag) 30 ml DAILY PRN PO CONSTIPATION; Start at 21:30 Carvedilol (Coreg) 6.25 mg BID PO Last administered on 05/01/17 09:47; Admin Dose 6.25 MG; Start 05/01/17 at 09:00 Doxazosin Mesylate (Cardura) 4 mg DAILY PO Last administered on 05/01/17 09:46 ; Admin Dose 4 MG; Start 05/01/17 at 09:00 Tamsulosin HCl (Flomax) 0.4 mg BID PO Last administered on 05/01/17 09:46; Admin Dose 0.4 MG; Start 05/01/17 at 09:00 Atorvastatin Calcium (Lipitor) 40 mg DAILY@21 PO ; Start 05/01/17 at 21:00 Diagnostic Test (Pha) (Accu-Chek) 1 ea 02 XX ; Start 05/02/17 at 02:00 Miscellaneous Information 1 ea NOTE XX ; Start 05/01/17 at 03:00 Glucose (Glutose) 15 gm Q15M PRN PO DECREASED GLUCOSE; Start 05/01/17 at 03:00 Glucose (Glutose) 22.5 gm Q15M PRN PO DECREASED GLUCOSE; Start 05/01/17 at 03:00 Dextrose (D50w Syringe) 25 ml Q15M PRN IV DECREASED GLUCOSE; Start 05/01/17 at 03:00 Dextrose (D50w Syringe) 50 ml Q15M PRN IV DECREASED GLUCOSE; Start 05/01/17 at 03:00 Glucagon (Glucagen) 1 mg Q15M PRN IM DECREASED GLUCOSE; Start 05/01/17 at 03:00 Glucose (Glutose) 15 gm Q15M PRN BUCCAL DECREASED GLUCOSE; Start 05/01/17 at 03: 00 Insulin Detemir (Levemir) 20 unit DAILY SC Last administered on 05/01/17 16:12 ; Admin Dose 20 UNIT; Start 05/01/17 at 11:30 Linagliptin (Tradjenta) 5 mg DAILY PO Last administered on 05/01/17 16:12; Admin Dose 5 MG; Start 05/01/17 at 11:00 Epoetin Zelalem (Epogen (Neserd)) 6,000 units TuThSa@17 SC Last administered on 18:30; Admin Dose 6,000 UNITS; Start 05/01/17 at 17:00 JOHANNA ABRAHAM MD May 01, 2017 19:39
[2017-05-01] MEDS: ATORVASTATIN 40 MG TAB PO SCH (20:32)
[2017-05-02] VITALS (12 sets, daily range): BP systolic 108–161; BP diastolic 52–72; PULSE 55–66; RESP 17–20
[2017-05-02] MEDS: SOD CHLORIDE 0.9% 1,000 ML IV SCH ×2 (01:40→14:57)
[2017-05-02] MEDS ORDERED: ACCU-CHEK XX SCH (02:00)
[2017-05-02] MEDS: ACCU-CHEK XX SCH (02:58)
[2017-05-02 07:42] LABS: ADD SCAN DIFF NO
[2017-05-02 07:47] LABS: BASOPHILS % 0.5 % (0.0-2.0); EOSINOPHILS # 0.5 10^3/ul (0.0-0.5); EOSINOPHILS % 7.1 % (0.0-7.0); HEMATOCRIT 26.2 % (42.0-52.0); LYMPHOCYTES # 1.5 10^3/ul (0.8-2.9); LYMPHOCYTES % 22.5 % (15.0-51.0); MEAN CORPUSCULAR HEMOGLOBIN 30.6 pg (29.0-33.0); MEAN CORPUSCULAR HGB CONC 34.4 g/dl (32.0-37.0); MEAN CORPUSCULAR VOLUME 89.1 fl (82.0-101.0); MEAN PLATELET VOLUME 11.3 fl (7.4-10.4); MONOCYTE # 0.5 10^3/ul (0.3-0.9); NEUTROPHILS % 61.3 % (39.0-77.0); PLATELET COUNT 178 10^3/UL (140-415); RED BLOOD COUNT 2.94 10^6/ul (4.70-6.10); RED CELL DISTRIBUTION WIDTH 12.2 % (11.5-14.5); WHITE BLOOD COUNT 6.5 10^3/ul (4.8-10.8)
[2017-05-02 07:56] LABS: ALBUMIN 3.9 g/dl (3.3-4.9); ALBUMIN/GLOBULIN RATIO 1.69; BILIRUBIN,INDIRECT 0.2 mg/dl (0-1.1); BILIRUBIN,TOTAL 0.2 mg/dl (0.2-1.3); CALCIUM 8.4 mg/dl (8.4-10.2); CREATININE 2.46 mg/dl (0.61-1.24); POTASSIUM 4.2 mmol/L (3.5-5.1); TOTAL PROTEIN 6.2 g/dl (6.1-8.1)
[2017-05-02 08:11] LABS: IRON 79 ug/dl (35-150)
[2017-05-02 08:20] LABS: TOTAL IRON BINDING CAPACITY 251 ug/dl (241-421)
[2017-05-02] MEDS: TAMSULOSIN (SR) 0.4 MG CAP PO SCH ×2 (08:40→21:28)
[2017-05-02] MEDS: LINAGLIPTIN 5 MG TABLET PO SCH (08:40)
[2017-05-02] MEDS: DOXAZOSIN 4 MG TAB PO SCH (08:41)
[2017-05-02] MEDS: INSULIN DETEMIR [LEVEMIR] 3ML CART SC SCH (08:45)
[2017-05-02] MEDS: INSULIN ASPART [NOVOLOG] 3 ML PEN SC SCH ×6 (08:46→21:00)
--- NOTE | 2017-05-02 13:23 | CONS ---
Date/Time of Note Date/Time of Note DATE: 05/02/17 TIME: 13:16 Assessment/Plan Assessment/Plan Chief Complaint/Hosp Course 73 year old man with history of diabetes mellitus for the past 25 years. On short acting insulin therapy only for the past 3 years. Never placed on long acting insulin due to his fear of hypoglycemia because of his erratic eating habits. Evidence of diabetic related chronic kidney disease.Awoke yesterday morning feeling"parched" with excessive amounts of thirst. Dr. Preston (his PMD) recommended he come to the [facility] for admission because his blood sugars were in the 700 range. I have been asked to assist in restructuring this patients medications to improve glycemic control. 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 Requires basal and prandial insulin. Will increase detemir insulin to 26 units. Prandial 5 units Novolog added to daily regimen. Tradjenta also added to daily regimen. Qualifiers: Diabetes mellitus complication detail: with chronic kidney disease (2) Hyperglycemia Status: Acute Comment: Improved glucose control. Additional Assessment/Plan Clinically stable for discharge tomorrow with endocrine follow up 1 week. Consultation Date/Type/Reason Admit Date/Time May 01, 2017 at 12:20 Initial Consult Date 05/01/17 Type of Consultation: Endocrine Reason for Consultation Glycemic management Referring Provider: POLO PRESTON MD 24 HR Interval Summary Free Text/Dictation Better overall glycemic control despite afternoon excursion yesterday afternoon. Exam/Review of Systems Vital Signs Vitals Vital Signs Date Time Temp Pulse Resp B/P Pulse Ox O2 Delivery O2 Flow Rate FiO2 05/02/17 12:00 66 05/02/17 11:58 97.9 17 161/72 98 04/30/17 23:00 Room Air Intake and Output 05/01/17 05/01/17 05/02/17 15:00 23:00 07:00 Intake Total 200 ml 800 ml 500 ml Output Total 500 ml 1400 ml 1100 ml Balance -300 ml -600 ml -600 ml Exam Constitutional: alert Neck: supple Respiratory: clear to auscultation Cardiovascular: regular rate and rhythm Gastrointestinal: soft Musculoskeletal: nl extremities to inspection Results POC glucose reviewed Result Diagram: 05/02/17 0650 05/02/17 0650 Results 24 hrs Laboratory Tests Test 05/01/17 16:05 05/01/17 17:58 05/01/17 20:35 05/01/17 22:19 Bedside Glucose 426 *H 473 *H 355 H 198 Test 05/02/17 02:50 05/02/17 04:58 05/02/17 06:50 05/02/17 07:48 Bedside Glucose 90 136 154 White Blood Count 6.5 Red Blood Count 2.94 L Hemoglobin 9.0 L Hematocrit 26.2 L Mean Corpuscular Volume 89.1 Mean Corpuscular Hemoglobin 30.6 Mean Corpuscular Hemoglobin Concent 34.4 Red Cell Distribution Width 12.2 Platelet Count 178 Mean Platelet Volume 11.3 H Neutrophils % 61.3 Lymphocytes % 22.5 Monocytes % 8.0 Eosinophils % 7.1 H Basophils % 0.5 Nucleated Red Blood Cells % 0.0 Neutrophils # 4.0 Lymphocytes # 1.5 Monocytes # 0.5 Eosinophils # 0.5 Basophils # 0.0 Nucleated Red Blood Cells # 0.0 Sodium Level 135 Potassium Level 4.2 Chloride Level 102 Carbon Dioxide Level 26 Anion Gap 11 Blood Urea Nitrogen 55 H Creatinine 2.46 H Glucose Level 125 # Calcium Level 8.4 Iron Level 79 Total Iron Binding Capacity 251 Percent Iron Saturation 31 Ferritin 156.0 Total Bilirubin 0.2 Direct Bilirubin 0.00 Indirect Bilirubin 0.2 Aspartate Amino Transf (AST/SGOT) 25 Alanine Aminotransferase (ALT/SGPT) 44 Alkaline Phosphatase 70 Total Protein 6.2 Albumin 3.9 Globulin 2.30 Albumin/Globulin Ratio 1.69 Test 05/02/17 12:09 Bedside Glucose 194 Medications Medications Current Medications Sodium Chloride (NS) 1,000 ml @ 75 mls/hr [id number] IV Last administered on 01:40; Admin Dose 75 MLS/HR; Start 04/30/17 at 21:28 Acetaminophen (Tylenol Tab) 650 mg Q6H PRN PO PAIN LEVEL 1-3 OR FEVER; Start at 21:30 Magnesium Hydroxide (Milk Of Mag) 30 ml DAILY PRN PO CONSTIPATION; Start at 21:30 Carvedilol (Coreg) 6.25 mg BID PO Last administered on 05/02/17 08:40; Admin Dose 6.25 MG; Start 05/01/17 at 09:00 Doxazosin Mesylate (Cardura) 4 mg DAILY PO Last administered on 05/02/17 08:41 ; Admin Dose 4 MG; Start 05/01/17 at 09:00 Tamsulosin HCl (Flomax) 0.4 mg BID PO Last administered on 05/02/17 08:40; Admin Dose 0.4 MG; Start 05/01/17 at 09:00 Atorvastatin Calcium (Lipitor) 40 mg DAILY@21 PO Last administered on 05/01/17 20:32; Admin Dose 40 MG; Start 05/01/17 at 21:00 Diagnostic Test (Pha) (Accu-Chek) 1 ea 02 XX Last administered on 05/02/17 02: 58; Admin Dose 1 EA; Start 05/02/17 at 02:00 Miscellaneous Information 1 ea NOTE XX ; Start 05/01/17 at 03:00 Glucose (Glutose) 15 gm Q15M PRN PO DECREASED GLUCOSE; Start 05/01/17 at 03:00 Glucose (Glutose) 22.5 gm Q15M PRN PO DECREASED GLUCOSE; Start 05/01/17 at 03:00 Dextrose (D50w Syringe) 25 ml Q15M PRN IV DECREASED GLUCOSE; Start 05/01/17 at 03:00 Dextrose (D50w Syringe) 50 ml Q15M PRN IV DECREASED GLUCOSE; Start 05/01/17 at 03:00 Glucagon (Glucagen) 1 mg Q15M PRN IM DECREASED GLUCOSE; Start 05/01/17 at 03:00 Glucose (Glutose) 15 gm Q15M PRN BUCCAL DECREASED GLUCOSE; Start 05/01/17 at 03: 00 Insulin Detemir (Levemir) 20 unit DAILY SC Last administered on 05/02/17 08:45 ; Admin Dose 20 UNIT; Start 05/01/17 at 11:30 Linagliptin (Tradjenta) 5 mg DAILY PO Last administered on 05/02/17 08:40; Admin Dose 5 MG; Start 05/01/17 at 11:00 Epoetin Zelalem (Epogen (Neserd)) 6,000 units TuThSa@17 SC Last administered on 18:30; Admin Dose 6,000 UNITS; Start 05/01/17 at 17:00 JOHANNA ABRAHAM MD May 02, 2017 13:23
--- NOTE | 2017-05-02 17:55 | PN ---
Date/Time of Note Date/Time of Note DATE: 05/02/17 TIME: 17:50 Assessment/Plan VTE Prophylaxis VTE Prophylaxis Intervention: ambulation Lines/Catheters IV Catheter Type (from Nrsg): Saline Lock Assessment/Plan Assessment/Plan * poorly controlled DM:much better and regimen being adjusted by endo to avoid hypoglycemia. monitor today with adjustment and check am labs * arf on ckd: much better with ivf.back to baseline * hyponatremia: due to severe hyperglycemia and volume depletion. corrected * htn: on meds * anemia: epogen started . iron sats stable Subjective 24 Hr Interval Summary Free Text/Dictation feels well. no issues Exam/Review of Systems Vital Signs Vitals Vital Signs Date Time Temp Pulse Resp B/P Pulse Ox O2 Delivery O2 Flow Rate FiO2 05/02/17 16:09 97.8 60 18 151/70 98 04/30/17 23:00 Room Air Intake and Output 05/01/17 05/01/17 05/02/17 15:00 23:00 07:00 Intake Total 200 ml 800 ml 500 ml Output Total 500 ml 1400 ml 1100 ml Balance -300 ml -600 ml -600 ml Exam Constitutional: alert, oriented, well developed Psych: no complaints Head: normocephalic Eyes: nl conjunctiva Neck: non-tender, supple Respiratory: clear to auscultation, normal air movement Cardiovascular: edema, nl pulses, regular rate and rhythm Gastrointestinal: non-tender, soft Results Result Diagram: 05/02/17 0650 05/02/17 0650 Results 24 hrs Laboratory Tests Test 05/01/17 17:58 05/01/17 20:35 05/01/17 22:19 05/02/17 02:50 Bedside Glucose 473 *H 355 H 198 90 Test 05/02/17 04:58 05/02/17 06:50 05/02/17 07:48 05/02/17 12:09 Bedside Glucose 136 154 194 White Blood Count 6.5 Red Blood Count 2.94 L Hemoglobin 9.0 L Hematocrit 26.2 L Mean Corpuscular Volume 89.1 Mean Corpuscular Hemoglobin 30.6 Mean Corpuscular Hemoglobin Concent 34.4 Red Cell Distribution Width 12.2 Platelet Count 178 Mean Platelet Volume 11.3 H Neutrophils % 61.3 Lymphocytes % 22.5 Monocytes % 8.0 Eosinophils % 7.1 H Basophils % 0.5 Nucleated Red Blood Cells % 0.0 Neutrophils # 4.0 Lymphocytes # 1.5 Monocytes # 0.5 Eosinophils # 0.5 Basophils # 0.0 Nucleated Red Blood Cells # 0.0 Sodium Level 135 Potassium Level 4.2 Chloride Level 102 Carbon Dioxide Level 26 Anion Gap 11 Blood Urea Nitrogen 55 H Creatinine 2.46 H Glucose Level 125 # Calcium Level 8.4 Iron Level 79 Total Iron Binding Capacity 251 Percent Iron Saturation 31 Ferritin 156.0 Total Bilirubin 0.2 Direct Bilirubin 0.00 Indirect Bilirubin 0.2 Aspartate Amino Transf (AST/SGOT) 25 Alanine Aminotransferase (ALT/SGPT) 44 Alkaline Phosphatase 70 Total Protein 6.2 Albumin 3.9 Globulin 2.30 Albumin/Globulin Ratio 1.69 Medications Medications Current Medications Sodium Chloride (NS) 1,000 ml @ 75 mls/hr [id number] IV Last administered on 01:40; Admin Dose 75 MLS/HR; Start 04/30/17 at 21:28 Acetaminophen (Tylenol Tab) 650 mg Q6H PRN PO PAIN LEVEL 1-3 OR FEVER; Start at 21:30 Magnesium Hydroxide (Milk Of Mag) 30 ml DAILY PRN PO CONSTIPATION; Start at 21:30 Carvedilol (Coreg) 6.25 mg BID PO Last administered on 05/02/17 08:40; Admin Dose 6.25 MG; Start 05/01/17 at 09:00 Doxazosin Mesylate (Cardura) 4 mg DAILY PO Last administered on 05/02/17 08:41 ; Admin Dose 4 MG; Start 05/01/17 at 09:00 Tamsulosin HCl (Flomax) 0.4 mg BID PO Last administered on 05/02/17 08:40; Admin Dose 0.4 MG; Start 05/01/17 at 09:00 Atorvastatin Calcium (Lipitor) 40 mg DAILY@21 PO Last administered on 05/01/17 20:32; Admin Dose 40 MG; Start 05/01/17 at 21:00 Diagnostic Test (Pha) (Accu-Chek) 1 ea 02 XX Last administered on 05/02/17 02: 58; Admin Dose 1 EA; Start 05/02/17 at 02:00 Miscellaneous Information 1 ea NOTE XX ; Start 05/01/17 at 03:00 Glucose (Glutose) 15 gm Q15M PRN PO DECREASED GLUCOSE; Start 05/01/17 at 03:00 Glucose (Glutose) 22.5 gm Q15M PRN PO DECREASED GLUCOSE; Start 05/01/17 at 03:00 Dextrose (D50w Syringe) 25 ml Q15M PRN IV DECREASED GLUCOSE; Start 05/01/17 at 03:00 Dextrose (D50w Syringe) 50 ml Q15M PRN IV DECREASED GLUCOSE; Start 05/01/17 at 03:00 Glucagon (Glucagen) 1 mg Q15M PRN IM DECREASED GLUCOSE; Start 05/01/17 at 03:00 Glucose (Glutose) 15 gm Q15M PRN BUCCAL DECREASED GLUCOSE; Start 05/01/17 at 03: 00 Linagliptin (Tradjenta) 5 mg DAILY PO Last administered on 05/02/17 08:40; Admin Dose 5 MG; Start 05/01/17 at 11:00 Epoetin Zelalem (Epogen (Neserd)) 6,000 units TuThSa@17 SC Last administered on 18:30; Admin Dose 6,000 UNITS; Start 05/01/17 at 17:00 Insulin Detemir (Levemir) 26 unit DAILY SC ; Start 05/03/17 at 09:00 ELY LINDA MD May 02, 2017 17:54
[2017-05-02] MEDS: ATORVASTATIN 40 MG TAB PO SCH (21:29)
[2017-05-03] VITALS (8 sets, daily range): BP systolic 131–171; BP diastolic 63–74; PULSE 59–88; RESP 17–20
[2017-05-03] MEDS: ACCU-CHEK XX SCH (02:00)
[2017-05-03 08:01] LABS: ADD SCAN DIFF NO
[2017-05-03 08:09] LABS: BASOPHILS % 0.4 % (0.0-2.0); EOSINOPHILS # 0.5 10^3/ul (0.0-0.5); EOSINOPHILS % 6.8 % (0.0-7.0); HEMATOCRIT 30.1 % (42.0-52.0); HEMOGLOBIN 9.9 g/dl (14.0-18.0); LYMPHOCYTES # 1.3 10^3/ul (0.8-2.9); LYMPHOCYTES % 18.4 % (15.0-51.0); MEAN CORPUSCULAR HEMOGLOBIN 29.8 pg (29.0-33.0); MEAN CORPUSCULAR HGB CONC 32.9 g/dl (32.0-37.0); MEAN CORPUSCULAR VOLUME 90.7 fl (82.0-101.0); MEAN PLATELET VOLUME 11.4 fl (7.4-10.4); MONOCYTE # 0.4 10^3/ul (0.3-0.9); MONOCYTES % 6.4 % (0.0-11.0); NEUTROPHIL # 4.7 10^3/ul (1.6-7.5); NEUTROPHILS % 67.4 % (39.0-77.0); PLATELET COUNT 188 10^3/UL (140-415); RED BLOOD COUNT 3.32 10^6/ul (4.70-6.10); RED CELL DISTRIBUTION WIDTH 12.5 % (11.5-14.5); WHITE BLOOD COUNT 6.9 10^3/ul (4.8-10.8)
[2017-05-03] MEDS: INSULIN ASPART [NOVOLOG] 3 ML PEN SC SCH ×2 (08:32→08:33)
[2017-05-03] MEDS: DOXAZOSIN 4 MG TAB PO SCH (08:37)
[2017-05-03] MEDS: TAMSULOSIN (SR) 0.4 MG CAP PO SCH (08:38)
[2017-05-03] MEDS: LINAGLIPTIN 5 MG TABLET PO SCH (08:38)
[2017-05-03 08:50] LABS: ALBUMIN 3.9 g/dl (3.3-4.9); ALBUMIN/GLOBULIN RATIO 1.77; BILIRUBIN,INDIRECT 0.1 mg/dl (0-1.1); BILIRUBIN,TOTAL 0.1 mg/dl (0.2-1.3); CALCIUM 9.1 mg/dl (8.4-10.2); CREATININE 2.26 mg/dl (0.61-1.24); TOTAL PROTEIN 6.1 g/dl (6.1-8.1)
[2017-05-03] MEDS ORDERED: INSULIN DETEMIR [LEVEMIR] 3ML CART SC SCH (09:00)
[2017-05-03] MEDS: SOD CHLORIDE 0.9% 1,000 ML IV SCH (09:27)
--- NOTE | 2017-05-03 10:47 | PDOCDIS ---
Discharge Instructions CONDITION Patient Condition: Good HOME CARE INSTRUCTIONS: Special Diet: 1800 carb controlled ACTIVITY: Activity Restrictions: Slowly Increase Activity Rest between Activity Bathing Restrictions: Shower FOLLOW UP/APPOINTMENTS Appointments Dr Key and Dr Cooley . POLO PRESTON MD May 03, 2017 10:47
[2017-05-03] MEDS ORDERED: LINA5TAB PO ×2 (11:13→11:14)
[2017-05-03] MEDS ORDERED: NOVO3I SC (11:18)
[2017-05-03] MEDS ORDERED: LEVEM SC (11:21)
--- NOTE | 2017-05-03 15:26 | DS ---
DATE OF ADMISSION: 05/01/2017 DATE OF DISCHARGE: 05/03/2017 HISTORY OF PRESENT ILLNESS AND HOSPITAL COURSE: This 76-year-old man was admitted to the hospital a fter he was found to have a blood sugar done in my office of 747. The patient was instructed the day to come to the hospital. The patient was somewhat confused initially, but his mental status improved during this hospitalization as his blood sugar was corrected. He also had low serum sodium of 122 on admission. That did improve and at the time of discharge, his serum sodium was 137. The patient does have chronic kidney disease and his serum creatinine was up to 3.0 on admission. The patient was seen in consultation by Dr. Mildred Romero, a local sea foam kiss maker to manage his blood s ugar. The patient at the time of discharge was in good condition. The patient will be sent home to day on the following medications: Levemir 26 units subq every morning, 4 units of NovoLog insulin s ubq before each meal plus insulin on a sliding scale. He was also getting erythropoietin while in [facility] which will probably be given to him as an outpatient. 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 MEDICATIONS: Included: 1. Crestor 10 mg daily. 2. Tradjenta 5 mg a day. 3. Coreg 6.25 mg twice a day. 4. Flomax 0.4 mg twice a day. 5. Doxazosin 4 mg at bedtime. 6. Furosemide 40 mg a day. 7. Coreg 6.25 mg twice a day. The patient will see me in my office in 3 days. He will also follow up with Dr. Barton in her offi ce in the next week or 2. DISCHARGE DIAGNOSES: 1. Uncontrolled diabetes mellitus. 2. Mild confusion that has resolved. 3. Hyponatremia. 4. Chronic kidney disease stage III. 5. Insulin-dependent diabetes mellitus. 6. Lower extremity edema which has responded to diuretics previously. 7. Benign prostatic hypertrophy. 8. Hyperlipidemia. Dictated By: POLO PRESTON MD, ND/EPHRAIM Conf#: [id number] DID#: [id number]
== END 2017-05-03 11:56 | disposition home or self-care (01) | DRG 638 ==
LOC: E/R 16:37 → MS4 21:34 → OBSVTOIN 05-01 12:20
PROVIDERS: ADMIT Internal Medicine; ATTEND Internal Medicine
DX: E11.65 Type 2 diabetes mellitus with hyperglycemia (principal); N17.9 Acute kidney failure, unspecified; E11.21 Type 2 diabetes mellitus with diabetic nephropathy; D63.1 Anemia in chronic kidney disease; E87.1 Hypo-osmolality and hyponatremia; E78.5 Hyperlipidemia, unspecified; E11.22 Type 2 diabetes mellitus with diabetic chronic kidney disease; I12.9 Hypertensive chronic kidney disease with stage 1 through stage 4 chronic kidney disease, or unspecified chronic kidney disease; K21.9 Gastro-esophageal reflux disease without esophagitis; N40.0 Benign prostatic hyperplasia without lower urinary tract symptoms; R60.0 Localized edema; N18.3 Chronic kidney disease, stage 3 (moderate); Z79.4 Long term (current) use of insulin
CPT/HCPCS: 36415; 70450; 71010; 80053; 81001; 82728; 82962; 83540; 83735; 84100; 84484; 85025; 85610; 85730; 93005; 96372; G0378; J0885; J1815; J7030

== ENCOUNTER 2017-12-21 09:31 | Inpatient (IN) | END 2017-12-24 11:25 | disposition home or self-care (01) | DRG 392 ==